=== PATIENT | female | born 1980 | race Caucasian/White ===

== ENCOUNTER → 2019-05-19 | Outpatient (CLI) | payer OTHER | LOC: CARD 08:13 | PROVIDERS: ATTEND Family Medicine | DX: I35.0 Nonrheumatic aortic (valve) stenosis (principal); R01.1 Cardiac murmur, unspecified | CPT/HCPCS: 93306 ==

== ENCOUNTER 2022-04-06 16:11 | Emergency (ER) | payer OTHER ==
[~2022-04-06] VITALS: Ht 167.7 cm; Wt 80.1 kg
--- NOTE | 2022-04-06 16:50 | Diagnostic Imaging Report ---
EXAM: Chest 1 view AP/PA only INDICATION: Cough. Chest tightness. COMPARISON: None. FINDINGS: Normal heart size and pulmonary vascularity. No dense consolidation, pleural effusion or pneumothorax. No acute osseous finding. IMPRESSION: Negative chest. Dictated by: Dictated on workstation # [id number]
[2022-04-06] MEDS ORDERED: RT-ALBUTEROL HFA 8.5 GM INHALER IH PRN (17:30)
[2022-04-06] MEDS ORDERED: PRD20T PO (17:32)
--- NOTE | 2022-04-06 17:32 | ED Cough/URI ---
General Chief Complaint: Cough/Cold/Flu Symptoms Stated Complaint: CHEST CONGESTION; COUGH Source: patient History of Present Illness Date Seen by Provider: Apr 06, 2022 Time Seen by Provider: 17:04 Initial Comments 41-year-old female presenting with complaints of cough, chest congestion, fever, chills, general malaise since Thursday of last week. She states that her fever broke on or Thursday. She continues to note increased cough and shortness of breath with congestion. She had tried some wtgv-mwm-fgdtizd medications with little to no improvement. As she continued to hack and cough she came to the emergency department to be evaluated. Timing/Duration: week, getting worse Severity/Quality: severe, productive cough (occasionally able to bring up some mucus with cough) Prior Episodes/Possible Cause: occasional episodes Modifying Factors: Worse With Activity Associated Symptoms: cough, nasal congestion, nasal drainage, shortness of breath, sore throat, wheezing Allergies and Home Medications Allergies Coded Allergies: No Known Drug Allergies (Unverified , 04/06/22) Patient Home Medication List Home Medication List Reviewed: Yes Prednisone (Prednisone) 20 Mg Tab, 40 MG PO DAILY Prescribed by: PATRICIA AREVALO on 04/06/22 3993 Review of Systems Review of Systems Constitutional: chills, fever (none since night) EENTM: nose congestion Respiratory: cough, short of breath, wheezing Cardiovascular: no symptoms reported Gastrointestinal: no symptoms reported Genitourinary: no symptoms reported Musculoskeletal: see HPI (generalized body aches) Skin: No rash Psychiatric/Neurological: Headache Past Ldlegun-Gaapby-Mvnssb Hx Patient Social History Tobacco Use?: Yes Smoking Status: Current Everyday Smoker Physical Exam Vital Signs - First Documented 04/06/22 16:14 Temp 35.4 Pulse 83 Resp 16 B/P (MAP) 130/91 (104) Pulse Ox 99 O2 Delivery Room Air Capillary Refill : Height: '" Weight: lbs. oz. kg; BMI Method: General Appearance: WD/WN, no apparent distress Eyes: Bilateral Eye PERRL, Bilateral Eye EOMI HEENT: PERRL/EOMI, pharynx normal Neck: non-tender, full range of motion, supple Respiratory: chest non-tender, lungs clear, no respiratory distress, no accessory muscle use, decreased breath sounds Cardiovascular: normal peripheral pulses, regular rate, rhythm, no edema Gastrointestinal: normal bowel sounds, non tender, soft, no pulsatile mass Extremities: normal range of motion, non-tender, normal capillary refill Neurologic/Psychiatric: pipe line walker II-XII nml as tested, no motor/sensory deficits, alert, normal mood/affect, oriented x 3 Skin: normal color, warm/dry Progress/Results/Core Measures Suspected Sepsis SIRS Temperature: Pulse: Respiratory Rate: Blood Pressure / Mean: Results/Orders Lab Results Laboratory Tests Test 04/06/22 16:30 Range/Units Influenza Type A (RT-PCR) Detected H Not Detecte Influenza Type B (RT-PCR) Not Detected Not Detecte SARS-CoV-2 RNA (RT-PCR) Not Detected Not Detecte My Orders Orders - PATRICIA AREVALO MD Covid 19 Inhouse Test (04/06/22 16:13) Influenza A And B By Pcr (04/06/22 16:13) Isolation Central Supply Req (04/06/22 16:13) Chest 1 View Ap/Pa Only (04/06/22 16:31) Dexamethasone Injection (Decadron Inje (04/06/22 17:27) Albuterol Inhaler (Albuterol) (04/06/22 17:30) Nursing Communication (Order) (04/06/22 17:28) Medications Given in ED Current Medications Medications Dose Ordered Sig/Samina Route Start Time Stop Time Status Last Admin Dose Admin Albuterol Sulfate 2 PUFFS inhaled with spacer ... Q2H PRN IH 04/06/22 17:30 04/06/22 17:47 DC 04/06/22 17:41 8.5 GM Vital Signs/I&O 04/06/22 04/06/22 16:14 17:47 Temp 35.4 35.4 Pulse 83 83 Resp 16 16 B/P (MAP) 130/91 (104) 130/91 Pulse Ox 99 99 O2 Delivery Room Air Room Air Capillary Refill : Progress Note : Progress Note Obtain nasal swab to check for influenza and COVID. Chest x-ray to look for signs of pneumonia. Nasal swab for COVID was negative. Her influenza swab was positive for influenza A. Chest x-ray did not show any acute infiltrate. Counseled on test results and findings. Encouraged to take rrjg-tjv-cpvbxra symptomatic medicine. Continue with other medicines as directed. Diagnostic Imaging Diagonstic Imaging: Xray Plain Films/CT/US/NM/MRI: chest Comments [facility], [facility]. [place], [place] NAME: REGI KRUSE [facility] REC#: [id number] PT STATUS: REG ER : 1980 PHYSICIAN: PATRICIA AREVALO MD ADMIT DATE: 04/06/22/ER FS Signed Date of Exam:04/06/22 CHEST 1 VIEW AP/PA ONLY EXAM: Chest 1 view AP/PA only INDICATION: Cough. Chest tightness. COMPARISON: None. FINDINGS: Normal heart size and pulmonary vascularity. No dense consolidation, pleural effusion or pneumothorax. No acute osseous finding. IMPRESSION: Negative chest. Dictated by: Dictated on workstation # [id number] Dict: 04/06/221645 Trans: 04/06/221658 PJE [id number] Interpreted by: DELIA JACKSON MD Electronically signed by: DELIA JACKSON MD 04/06/229 Reviewed: Reviewed by Me Departure Impression Primary Impression: Influenza A Additional Impressions: Viral syndrome Cough in adult patient Upper respiratory infection with cough and congestion Disposition: HOME, SELF-CARE Condition: Stable Departure-Patient Inst. Decision time for Depature: 17:30 Referrals: BENJAMIN ROJO MD (PCP) Primary Care Physician Patient Instructions: Flu, Adult ED, Cough, Adult ED, Upper Respiratory Infection ED, Viral Syndrome (DC) Add. Discharge Instructions: Stay well-hydrated and drink plenty of fluids. Use the albuterol inhaler with a spacer to help with cough and shortness of breath. Use 2 puffs with spacer every 4-6 hours as needed for cough and shortness of breath. The steroids will help with the congestion and cough. Continue with acetaminophen and/or ibuprofen to help with body aches and fever or chills. Use a humidifier at the bedside to help with cough and congestion while resting. Check back to the clinic for continued symptoms or if not improving. Typically influenza or other viral infection course is at least 7 to 10 days or up to 2 weeks. All discharge instructions reviewed with patient and/or family. Voiced understanding. Scripts Prednisone (Prednisone) 20 Mg Tab 40 MG PO DAILY for cough/congestion for 5 Days, #10 TAB 0 Refills Prov: PATRICIA AREVALO MD 04/06/22 PATRICIA AREVALO MD Apr 06, 2022 17:32
[2022-04-06 17:47] VITALS: BP 130/91
== END 2022-04-06 17:46 | disposition home or self-care (01) ==
LOC: EDUNIT# 16:11 → ER FS 16:13
DX: J10.1 Influenza due to other identified influenza virus with other respiratory manifestations (principal); Z20.822 Contact with and (suspected) exposure to COVID-19
CPT/HCPCS: 71045; 87636